=== PATIENT | female | born 1965 | race Caucasian/White ===

== ENCOUNTER 2024-06-17 13:30 | Outpatient (CLI) | payer OTHER, SELFPAY ==
[2024-06-17 14:11] LABS: Basophils # 0.1 10^3/uL (0.0-0.1); Basophils % 0.6 %; Eosinophils # 0.6 10^3/uL (0.0-0.8); Eosinophils % 6.4 %; Hematocrit 43.8 % (36-47); Lymphocytes # 3.4 10^3/uL (0.8-4.8); Lymphocytes % 35.9 %; Mean Corpuscular Hemoglobin 28.5 pg (27-33); Mean Corpuscular Volume 89.2 fl (85-98); Mean Platelet Volume 9.6 fL (7.4-10.4); Monocytes # 0.9 10^3/uL (0.2-0.9); Monocytes % 9.4 %; Neutrophils # 4.52 10^3/uL (1.8-7.7); Neutrophils % 47.5 %; Nucleated Red Blood Cells % 0 %; Platelet Count 366 10^3/cmm (157-399); Red Blood Count 4.91 10^6/uL (3.85-5.65); Red Cell Distribution Width 14.6 % (12.1-15.1); White Blood Count 9.53 10^3/uL (3.29-11.43)
[2024-06-17 14:33] LABS: Albumin Level 4.1 g/dL (3.5-5.2); Blood Urea Nitrogen 28 mg/dL (6-20); Carbon Dioxide 26 mmol/L (22-29); Chloride 100 mmol/L (98-107); Glomerular Filtration Rate 35.9 mL/min (90-130); Glucose 84 mg/dL (65-115); Phosphorus 2.8 mg/dL (2.5-4.5); Sodium 137 mmol/L (136-145)
[2024-06-17 14:35] LABS: Urine Creatinine 86 mg/dL (28-217); Urine Protein Random 17 mg/dL
[2024-06-17 14:45] LABS: Calcium 9.1 mg/dL (8.5-10.5); Parathyroid Hormone 102.8 pg/mL (15-65)
== END 2024-06-17 13:31 | disposition home or self-care (01) ==
LOC: LAB 13:34
PROVIDERS: Family Provider Family Medicine; PCP Family Medicine; Visit Provider Internal Medicine
DX: N18.32 Chronic kidney disease, stage 3b (principal)
CPT/HCPCS: 36415; 80069; 82310; 82570; 83970; 84156; 85025

== ENCOUNTER → 2024-09-07 10:08 | Outpatient (BNVA) | payer OTHER, MEDICAID, SELFPAY | PROVIDERS: Family Provider Family Medicine; PCP Family Medicine; Visit Provider Orthopaedic Surgery | DX: M54.9 Dorsalgia, unspecified (principal) | CPT/HCPCS: 72100 ==

== ENCOUNTER 2024-09-22 16:35 | Outpatient (CLI) | payer OTHER, MEDICAID, SELFPAY ==
--- NOTE | 2024-09-22 16:45 | MR_ITS ---
WS: [id number] MRI LUMBAR SPINE NONCONTRAST HISTORY: Chronic low back pain, hip pain. Pain mostly on the LEFT. COMPARISON: 07/09/2018 TECHNIQUE: Sagittal and axial multisequence imaging is submitted. Thoracolumbar scoliosis. RIGHT curvature lumbar spine. Posterior alignment is normal. Severe degenerative disc base narrowing at L1-2. Marrow edema througho ut a large portion of the L1 and L2 vertebral bodies. This has progressed since the prior study. Remaining discs are well-preserved. Conus terminates normally at L1-2 disc level. L1-L2: Diffuse annular disc bulging with osteophytic ridging. Small central disc protrusion has decre ased in size since the prior study. There is a shallow RIGHT foraminal disc protrusion. Mild osteophy tic ridging. Mild bilateral facet arthritis. Mild bilateral foraminal stenosis. L2-L3: Mild annular disc bulging. Very mild LEFT foraminal stenosis. L3-L4: Mild annular disc bulging with facet joint arthritis. No stenosis. L4-L5: Diffuse annular disc bulging with facet joint arthritis. Mild subarticular recess encroachment upon the traversing L5 nerve roots. L5-S1: Mild annular disc bulging and mild facet arthritis. Mild atrophy LEFT kidney is similar to the prior study. There is fullness and heterogeneity at the RI GHT renal pelvis and dilated proximal ureter. These changes are new since the prior study. MR/MR lumbar spine wo con* [id number] IMPRESSION: 1. Severe degenerative disc disease at L1-2 has progressed since the prior leesa dy. Extensive marrow edema within the L1 and L2 vertebral bodies is also new. 2. Large lobulated disc protrusion at L1-2 has significantly decreased in size . There is a small central disc protrusion and shallow RIGHT foraminal disc pro trusion. Mild bilateral foraminal stenosis. 3. Mild LEFT foraminal stenosis at L1-2. 4. Mild subarticular recess encroachment at L4-5. Mild disc contact on the tra versing L5 nerve roots. 5. Abnormal appearance of the RIGHT renal pelvis. There is soft tissue heterog eneity and mildly dilated proximal ureter. These findings are new since the alda or study. This may be an extrarenal pelvis but due to the heterogeneity and mil dly progressed dilatation additional imaging is recommended. Consider noncontra st CT evaluation of the RIGHT kidney. If there is suspicion for a mass postcont rast imaging may also be necessary.
== END 2024-09-22 16:36 | disposition home or self-care (01) ==
LOC: RAD 16:35
PROVIDERS: Family Provider Family Medicine; PCP Family Medicine; Visit Provider Orthopaedic Surgery
DX: M51.360 Other intervertebral disc degeneration, lumbar region with discogenic back pain only (principal); M51.24 Other intervertebral disc displacement, thoracic region; R93.421 Abnormal radiologic findings on diagnostic imaging of right kidney
CPT/HCPCS: 72148

== ENCOUNTER 2024-11-05 13:12 | Outpatient (CLI) | payer OTHER, MEDICAID, SELFPAY ==
[2024-11-05 13:42] LABS: Basophils # 0.1 10^3/uL (0.0-0.1); Basophils % 0.6 %; Eosinophils # 0.7 10^3/uL (0.0-0.8); Hematocrit 42.4 % (36-47); Lymphocytes # 3.3 10^3/uL (0.8-4.8); Lymphocytes % 33.9 %; Mean Corpuscular HGB Conc 31.4 g/dL (30-55); Mean Corpuscular Hemoglobin 27.6 pg (27-33); Mean Platelet Volume 9.3 fL (7.4-10.4); Monocytes # 0.8 10^3/uL (0.2-0.9); Monocytes % 8.1 %; Neutrophils # 4.86 10^3/uL (1.8-7.7); Neutrophils % 50.1 %; Nucleated Red Blood Cells % 0 %; Platelet Count 414 10^3/cmm (157-399); Red Blood Count 4.82 10^6/uL (3.85-5.65); Red Cell Distribution Width 13.6 % (12.1-15.1); White Blood Count 9.71 10^3/uL (3.29-11.43)
[2024-11-05 13:56] LABS: Creatinine Urine, Random 340 mg/dL (28-217); Microalbumin Random Urine 22 ug/dL (0-20)
[2024-11-05 13:57] LABS: Albumin Level 3.8 g/dL (3.5-5.2); Anion Gap 18.1 (5-19); Blood Urea Nitrogen 25 mg/dL (6-20); Calcium 9.3 mg/dL (8.5-10.5); Carbon Dioxide 24 mmol/L (22-29); Chloride 100 mmol/L (98-107); Glucose 128 mg/dL (65-115); Phosphorus 3.4 mg/dL (2.5-4.5); Potassium 4.1 mmol/L (3.5-5.1); Sodium 138 mmol/L (136-145)
[2024-11-05 14:07] LABS: Microalbum Creatinine Ratio Ur 65 mg/dL (0-20)
[2024-11-05 14:15] LABS: Calcium 9.6 mg/dL (8.5-10.5); Parathyroid Hormone 110.4 pg/mL (15-65)
[2024-11-05 19:25] LABS: 25 Hydroxy Vitamin D 58 ng/mL (30-100)
== END 2024-11-05 13:13 | disposition home or self-care (01) ==
LOC: LAB 13:19
PROVIDERS: Family Provider Family Medicine; PCP Family Medicine; Visit Provider Nurse Practitioner Family
DX: N18.32 Chronic kidney disease, stage 3b (principal); N25.81 Secondary hyperparathyroidism of renal origin
CPT/HCPCS: 36415; 80069; 82044; 82306; 82310; 83970; 85025